=== PATIENT | male | born 1985 | race Caucasian/White ===

== ENCOUNTER 2023-11-23 08:26 | Emergency (ER) | payer OTHER, SELFPAY ==
[2023-11-23 08:28] VITALS: BP 155/95
[2023-11-23 09:13] VITALS: BMI 31.2
[2023-11-23] MEDS: NSS 1000 IV (09:24)
--- NOTE | 2023-11-23 09:32 | ED.GENMED ---
History of Present Illness
General
Chief Complaint: Flank Pain
Source: patient
Exam Limitations: none
Time Seen by Provider: 11/23/23 08:38
Nursing documentation reviewed up to this point in time: agreed with
Travel History
Have you had any contact with someone who has COVID-19?: No
Do you have any symptoms of coronavirus? Fever > 100 degrees, chills, cough, shortness of breath, sore throat, loss of taste or smell, muscle aches, or headache?: No
History of Present Illness
History of Present Illness:
38 y/o M
h/o ADHD
had ARF when he was age 6 uncelear cause (aftera n illness) fully recovered, did not require dialysis
here with left flank pain intermittently x 3 weeks
not really positional, not tender, no cough, no sob, no pleuritic pain
no radiation into abdomen or scrotum
urinating normally
no fever
Past History
Past History
ED Past Medical History: Psychiatric (ADHD )
ED Past Surgical History: None
Social History
Alcohol: Occasional
Drug: Other (Took an ecstasy tablet tonight )
Personal: Single
Living: with family
Review of Systems
Review of Systems
Allergies reviewed?: Yes
All Other Systems: Not applicable
Phy Exam
Physical Exam
Physical Exam:
GENERAL: Alert, shifting frequently, seems anxious, constantly moving
Neck: supple
CARDIAC: Regular rate and rhythm .
LUNGS: Clear breath sounds bilaterally, no acute respiratory distress, no wheezes/rales/rhonchi
chest wall: no tenderness
no rash
ABDOMEN: Soft, normal bowel sounds, nondistended, no tenderness, no guarding, no rebound, neg bowen's no cva tendenress,
NEUROLOGICAL: Alert and oriented, no focal neuro deficits
SKIN: Warm and dry, skin intact.
PSYCH: anxious
Course
Orders/Labs/Results
Orders:
Orders
11/23/23 08:55
0.9% Sodium Chloride 1000 ml [Nss] 1,000 ml IV BOLUS
11/23/23 09:25
Basic Metabolic Panel Urgent
Complete Blood Count/With Diff Urgent
Lipase Urgent
Urinalysis Reflex To Culture Urgent
Date Specimen was Collected: 11/23/23
Time Specimen was Collected: 09:13
Abnormal Lab Results
11/23/23
09:25
Absolute Monos (auto) 0.7 H 10^3/uL
(0.1-0.6)
Chloride 108 H mmol/L
(98-107)
Urine Ketones Trace A
(Negative)
11/23/23 09:25
11/23/23 09:25
Vital Signs
Initial and Last Documented VS:
Initial Vital Signs
Temp Pulse Resp BP Pulse Ox
98.0 F 101 16 155/95 99
11/23/23 08:28 11/23/23 08:28 11/23/23 08:28 11/23/23 08:28 11/23/23 08:28
Last Documented Vital Signs
Temp Pulse Resp BP Pulse Ox
98.0 F 101 16 155/95 99
11/23/23 08:28 11/23/23 08:28 11/23/23 08:28 11/23/23 08:28 11/23/23 08:28
MDM/Problems Addressed
Differential Diagnosis Includes:
kidney stone, pancreatitis, msk pain, unlikely but possibly PE
MDM/Problems Addressed:
38 y/o M with h/o remote ARF as a child, completely recovered without dialysis
here with left back pain that has been coming and going for 3 weeks, saw PCP and todl it was MSK
has tried tylenol and motrin here and there
he has not had any radiation of pain, systemic symtoms, cp, sob, fever, urinary symptoms
today pain was worske
pt is shifting, restless, moving a lot but not appearing to be from pain
denies ilicit drug use
does hav ADHD and some anxiety
ordered labs and UA na dplan was for imaging
but pt asked RN if he could leave, had her remove the IV and was dressed in the hallway saying he felt better and wante dot leave [facility] make him anxious
he is aware that he is leaving [place].
*Critical Care Note
Total Time (30-74mins, 75-104mins- exclusive of procedures): Not Applicable
ED Attending Note
-
Portions of this chart may have been created with voice recognition software.� Occasional wrong word or��sound alike� substitutions may have occurred due to the inherent limitations of voice recognition software.
Discharge Plan
Departure
Patient Disposition: Against Medical Advice
Discharge Problem:
Acute flank pain
Prescriptions:
No Action
dextroamphetamine-amphetamine 30 MG tablet
30 mg PO TID
Referrals:
Mundo Fernandez MD [Family Provider] -
Interventions
Interventions:
*Risk Screen - Suicide Last Done: 11/23/23 09:13
*General Assessment Last Done: 11/23/23 09:13
*Neglect/Abuse Screening Last Done: 11/23/23 09:13
ED- Fall Risk Assessment Last Done: 11/23/23 09:13
*ED COVID-19 Vaccine History Last Done: 11/23/23 08:28
*Nursing Disposition Last Done: 11/23/23 10:25
CY-Vdyhca-Uvabszvret Assessment Last Done: 11/23/23 09:13
ED-Male Genitourinary Assessment Last Done: 11/23/23 09:13
Discharge Date and Time
Discharge Date/Time: 11/23/23 10:26
Print Language: SWEDISH
[2023-11-23 09:35] LABS: % Basophils 1.1 % (0-2); % Eosinophils 4.2 % (0-6); % Immature Granulocytes 0.2 % (0-0.5); % Lymphocytes 31.4 % (20.5-51.1); % Monocytes 7.1 % (1.7-9.3); Absolute Basophils 0.1 10^3/uL (0-0.2); Absolute Eosinophils 0.4 10^3/uL (0-0.7); Absolute Lymphocytes 2.9 10^3/uL (1.2-3.4); Absolute Monocytes 0.7 10^3/uL (0.1-0.6); Absolute Neutrophils 5.2 10^3/uL (1.4-6.5); Hematocrit 45.9 % (39.0-52.0); Mean Corp Hgb Conc. 34.9 g/dL (33.0-37.0); Mean Corpuscular Hgb 29.7 pg (27.0-31.0); Mean Corpuscular Volume 85.3 fL (80.0-94.0); Mean Platelet Volume 9.4 fL (7.4-10.4); Nucleated Red Blood Cells % 0 % (-); Platelet Count 267 10^3/uL (130-400); Red Blood Cell Count 5.38 10^6/uL (4.70-6.10); Red Cell Dist. Width 12.2 % (11.5-14.5); Urine Albumin Negative (Neg - Trace); Urine Bilirubin Negative (Negative); Urine Character Clear (Clear); Urine Color Yellow; Urine Glucose Negative (Negative); Urine Ketone Trace (Negative); Urine Leukocyte Negative (Negative); Urine Nitrite Negative (Negative); Urine Occult Blood Negative (Negative); Urine Urobilinogen Negative (Neg - 1+); White Blood Cell Count 9.3 10^3/uL (4.8-10.8)
[2023-11-23 10:02] LABS: Blood Urea Nitrogen 15 mg/dl (9-20); Calcium 9.7 mg/dl (8.4-10.2); Carbon Dioxide 22 mmol/L (22-30); Chloride 108 mmol/L (98-107); Estimated Creatinine Clearance > 125 ml/min; Glucose 84 mg/dl (70-99); Lipase 105 U/L (23-300); Sodium 136 mmol/L (135-145); eGFR > 60.00
== END 2023-11-23 10:26 | disposition left against medical advice (07) ==
LOC: EMR 08:26
PROVIDERS: Physician Assistant; EMERGENCY PHYSICIAN Emergency Medicine; FAMILY PHYSICIAN Family Medicine
DX: R10.9 Unspecified abdominal pain (principal); F41.9 Anxiety disorder, unspecified; F90.9 Attention-deficit hyperactivity disorder, unspecified type; Z53.29 Procedure and treatment not carried out because of patient's decision for other reasons
CPT/HCPCS: 99283; 80048; 81003; 83690; 85025

== ENCOUNTER 2025-08-04 04:40 | Emergency (ER) | payer BC, SELFPAY ==
[2025-08-04] VITALS (9 sets, daily range): BP systolic 126–178; BP diastolic 88–116; BMI 31.4
--- NOTE | 2025-08-04 08:08 | ED.GENMED ---
History of Present Illness
General
Chief Complaint: Headache
Source: patient
Exam Limitations: none
Time Seen by Provider: 08/04/25 07:44
Nursing documentation reviewed up to this point in time: agreed with
History of Present Illness
History of Present Illness:
40-year-old male with past medical history of ADHD who presents to the emergency department for evaluation of headache. Patient reports onset of symptoms 3 days ago and he reports that they have been constant since that time. He reports a
left-sided headache that starts behind his eye and radiates around to head. No clear triggering or relieving factors noted. He reports some associated nausea and vomited last night. He does report some mild blurry vision but no eye pain or loss
of vision. He denies any photosensitivity. He denies any neck pain or stiffness. He denies any fevers or chills. He denies any weakness or numbness in extremities or any other acute complaints. He does report a history of more mild headaches in
the past but never persistent or intense like current.
Past History
Past History
ED Past Medical History: Psychiatric (ADHD )
ED Past Surgical History: None
Social History
Alcohol: Occasional
Drug: Other (Took an ecstasy tablet tonight )
Personal: Single
Living: with family
Review of Systems
Review of Systems
All Other Systems: ROS reviewed and negative except as documented in HPI and ROS
Constitutional: Denies fever or chills
Respiratory: Denies trouble breathing
Cardiac: Denies chest pain
ABD/GI: Reports nausea and vomiting; Denies abdominal pain
: Denies flank pain
Musculoskeletal: Denies neck pain or back pain
Neurological: Reports headache; Denies dizzy, weakness or numbness
Phy Exam
Physical Exam
Physical Exam:
General: Awake, alert, oriented x3; no acute distress
Head: Normocephalic, atraumatic
Eyes: Conjunctiva normal, EOMI, pupils equal round reactive to light bilaterally
Throat: Airway intact, handling secretions
Neck: Trachea midline, supple without meningismus
Lungs: Breathing comfortably no respiratory distress, no tachypnea or hypoxia
Heart: Regular rate
Neuro: Cranial nerves intact, speech fluid without dysarthria, motor and sensory intact in all extremities proximally and distally
Skin: Warm and dry
Extremities: No edema in extremities, warm and well-perfused
Scores
Heart Failure Risk
Heart Failure Risk Score: Not Applicable
Heart Score for Chest Pain Patients
STEMI patient?: Not applicable
Withdrawal Assessment of Alcohol
Withdrawal Assessment Completed?: Not applicable
Course
Orders/Labs/Results
Orders:
Orders
08/04/25 07:47
CT Head W/o Iv Contrast Urgent
Comment:
Reason For Exam: worsening headache
0.9% Sodium Chloride 1000 ml [Nss] 1,000 ml IV BOLUS
08/04/25 08:00
COVID-19 Antigen Urgent
Source: Nasal Swab
Complete Blood Count/With Diff Urgent
Comprehensive Metabolic Panel Urgent
Influenza A+B Rapid Molecular Urgent
JORDY Source: Nasal Swab
Specimen Description:
08/04/25 08:36
Diphenhydramine [Benadryl] 25 mg IV NOW STA
Ketorolac [Toradol] 15 mg IV NOW STA
Metoclopramide [Reglan] 10 mg IV NOW STA
Abnormal Lab Results
08/04/25
08:00
Hct 38.9 L %
(39.0-52.0)
Abs Immat Gran (auto) 0.1 H 10^3/uL
(0-0.05)
Immature Gran % 0.7 H %
(0-0.5)
Glucose 115 H mg/dl
(70-99)
Calcium 10.4 H mg/dl
(8.4-10.2)
08/04/25 08:00
08/04/25 08:00
Vital Signs
Initial and Last Documented VS:
Initial Vital Signs
Temp Pulse Resp BP Pulse Ox
36.8 C 87 20 167/116 99
08/04/25 04:42 08/04/25 04:42 08/04/25 04:42 08/04/25 04:42 08/04/25 04:42
Last Documented Vital Signs
Temp Pulse Resp BP Pulse Ox
37.0 C 87 20 144/97 98
08/04/25 09:30 08/04/25 04:42 08/04/25 04:42 08/04/25 09:09 08/04/25 09:09
MDM/Problems Addressed
Differential Diagnosis Includes:
Tension headache, migraine headache, cluster headache, brain mass, brain bleed; lower suspicion for meningitis clinically
MDM/Problems Addressed:
40-year-old male presents for evaluation of left-sided headache for the past 3 days associated with some nausea and vomiting last night but no photophobia, no neck pain or stiffness, no fever. He is hypertensive here but otherwise normal vitals.
Physical exam is as noted. Plan to check basic labs, viral swabs, CT head to start. Provide IV fluids, reassess after the above.
Labs reviewed: CBC and CMP no clinically significant abnormalities. Viral swabs negative. CT no acute abnormalities. Clinical reassessment patient says symptoms completely resolved with migraine cocktail here. He appears very comfortable. Blood
pressure essentially normalized. Overall suspect this was likely migraine with left-sided headache with some visual symptoms and nausea. Nothing clinically to suggest meningitis at this point�symptoms resolved with treatment, no fever, no
leukocytosis, no nuchal rigidity/meningeal signs, no photophobia. In my judgment no indication for emergent LP. At this point stable for discharge. Spoke to patient about follow-up plan return precautions all questions answered.
Acute Exacerbation and/or Progression of Chronic Illness: HTN
*Radiology
Radiology exam reviewed: radiology read reviewed
*Pulse Oximetry
SaO2: 100
Oxygen Mode of Delivery: Room air
Patient hypoxic: no (100%)
*Critical Care Note
Total Time (30-74mins, 75-104mins- exclusive of procedures): Not Applicable
Data Reviewed
Source: patient and records
Further Testing Considered But Not Given:
Considered need for CT angiogram, considered need for lumbar puncture
ED Attending Note
-
Portions of this chart may have been created with voice recognition software.� Occasional wrong word or��sound alike� substitutions may have occurred due to the inherent limitations of voice recognition software.
Discharge Plan
Departure
Patient Disposition: Home (Routine Discharge)
Date of Disposition: 08/04/25
Time of Disposition: 10:12
Patient with high blood pressure during this ER visit?: Yes
Discharge Problem:
Headache
Instructions: Headache, Adult (DC), BLOOD PRESSURE
Prescriptions:
No Action
dextroamphetamine-amphetamine 30 MG tablet
30 mg PO TID
Referrals:
Mundo Fernandez MD [Family Provider, Family Practice] - Follow up in 1 week
Activity Restrictions/Additional Instructions:
Thank you for visiting the Emergency Department at [facility].
1. Please schedule a follow up appointment as directed. Call first thing tomorrow morning to make an appointment.
2. If indicated, please take your medications as instructed and indicated on discharge paperwork.
3. If any of your symptoms do not improve, or persist, or become more severe within 6-12 hours, please return to the emergency department for further care.
4. Please return to the emergency department if you develop a headache, neck pain/stiffness, fever greater than 100.4F, chest pain, shortness of breath, persistent nausea, vomiting, slurred speech, difficulty walking, numbness/tingling, weakness,
signs of infection or any other symptoms that are worrisome to you.
Please call [phone] if you have any questions.
Interventions
Interventions:
*General Assessment Last Done: 08/04/25 05:19
*Neglect/Abuse Screening Last Done: 08/04/25 05:19
*ED COVID-19 Vaccine History Last Done: 08/04/25 05:19
*ED Influenza Vaccine History Last Done: 08/04/25 05:19
[facility] Fall Risk Assessment Tool Last Done: 08/04/25 05:19
*Risk Screen - Suicide (C-SSRS) Last Done: 08/04/25 04:42
ED- Neurological Assessment Last Done: 08/04/25 05:19
Discharge Date and Time
Print Language: ESTONIAN
[2025-08-04] MEDS: NSS 1000 IV (08:18)
[2025-08-04 08:20] LABS: Hematocrit 38.9 % (39.0-52.0); Hemoglobin 14.2 g/dL (13.0-18.0); Mean Corp Hgb Conc. 36.5 g/dL (33.0-37.0); Mean Corpuscular Volume 80.5 fL (80.0-94.0); Nucleated Red Blood Cells % 0 % (-); Platelet Count 269 10^3/uL (130-400); Red Cell Dist. Width 12.6 % (11.5-14.5)
[2025-08-04 08:32] LABS: ALT (SGPT) 36 U/L (0-50); AST (SGOT) 26 U/L (17-59); Albumin 4.5 g/dl (3.5-5.0); Alkaline Phosphatase 63 U/L (38-126); Blood Urea Nitrogen 16 mg/dl (9-20); Calcium 10.4 mg/dl (8.4-10.2); Carbon Dioxide 25 mmol/L (22-30); Chloride 102 mmol/L (98-107); Estimated Creatinine Clearance > 125 ml/min; Glucose 115 mg/dl (70-99); Potassium 4.7 mmol/L (3.5-5.1); Sodium 135 mmol/L (135-145); Total Protein 7.3 g/dl (6.3-8.2); eGFR > 60.00
[2025-08-04] MEDS: BENADRYL 25 MG IV (08:41)
[2025-08-04] MEDS: REGLAN 10 MG IV (08:41)
[2025-08-04] MEDS: TORADOL 15 MG IV (08:41)
[2025-08-04 08:54] LABS: COVID-19 Antigen Negative (Negative)
== END 2025-08-04 10:22 | disposition home or self-care (01) ==
LOC: EMR 04:40
PROVIDERS: EMERGENCY PHYSICIAN Emergency Medicine; FAMILY PHYSICIAN Family Medicine
DX: R51.9 Headache, unspecified (principal); R11.0 Nausea; I10 Essential (primary) hypertension; Z11.52 Encounter for screening for COVID-19
CPT/HCPCS: 99284; 96374; 96375; 96361; 70450; 80053; 85025; 87502; 87811